=== PATIENT | female | born 1930 | race Caucasian/White ===

== ENCOUNTER 2018-12-04 09:57 | Observation (INO) | payer MEDICARE ==
--- NOTE | 2018-12-04 10:25 | ERPHSYRPT ---
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 pt found down by son. pt has bruising on head, face and back at the level of thoracic spine. pt denies cp and denies abd pain. pt lives alone. pt feels weak. pt has not been eating or drinking well per pts son. pt is a full code. Occurred: days ago (a few days ago and today) Reason for Fall: unknown (found down) Injuries/Pain Location: head, face, back, middle Loss of Consciousness: unsure, other (pt has chronic dementia) Severity of Pain-Max: none Severity of Pain-Current: none Modifying Factors: Improves With: nothing Associated Symptoms (Fall): denies symptoms Allergies/Adverse Reactions: codeine [Codeine] Allergy (Mild, Verified 12/04/18 10:29) Nausea meperidine HCl [From Demerol] Allergy (Mild, Verified 12/04/18 10:29) Vomiting Sulfa (Sulfonamide Antibiotics) [Sulfa(Sulfonamide Antibiotics)] Allergy (Mild, Verified 12/04/18 10:29) Vomiting aspirin Adverse Reaction (Verified 12/04/18 10:29) gi bleeding Can not have any aspirin products Home Medications: Amlodipine Besylate/Benazepril [Lotrel 5-20 mg Capsule] 1 tab PO DAILY 03/06/12 [History] Glimepiride 1 tab PO DAILY 03/06/12 [History] Pravastatin Sodium 1 tab PO HS 03/06/12 [History] Metoprolol Succinate [Toprol Xl] 50 mg PO BID 07/29/14 [History] Apixaban [Eliquis] 2.5 mg PO BID 11/13/14 [History] Hx Tetanus, Diphtheria Vaccination/Date Given: Yes Hx Influenza Vaccination/Date Given: Yes (2012) Hx Pneumococcal Vaccination/Date Given: Yes (2000) - Review of Systems Constitutional: Weakness Eyes: No Symptoms Ears, Nose, & Throat: No Symptoms Respiratory: No Symptoms Cardiac: No Symptoms Abdominal/Gastrointestinal: No Symptoms Genitourinary Symptoms: No Symptoms Musculoskeletal: No Symptoms Skin: No Symptoms Neurological: No Symptoms Psychological: No Symptoms Endocrine: No Symptoms Hematologic/Lymphatic: No Symptoms Immunological/Allergic: No Symptoms All Other Systems: Reviewed and Negative - Past Medical History Pertinent Past Medical History: Yes Neurological History: No Pertinent History ENT History: Cataracts, Other Cardiac History: Arrhythmia, Peripheral Vascular Disease, Other Respiratory History: Bronchitis, COPD Endocrine Medical History: Diabetes Type II Musculoskeletal History: Arthritis GI Medical History: GERD History: No Pertinent History Psycho-Social History: No Pertinent History Female Reproductive Disorders: Other Other Medical History: atrial flutter. Pt and son report that she is having a pacemaker inserted on May 20, 2018. 04/17/18 denies any changes - Past Surgical History Past Surgical History: Yes Neuro Surgical History: No Pertinent History Cardiac: No Pertinent History Respiratory: No Pertinent History, Chest Surgery Gastrointestinal: Cholecystectomy Genitourinary: No Pertinent History Musculoskeletal: No Pertinent History, Orthopedic Surgery Female Surgical History: Hysterectomy Other Surgical History: left ankle surgery 1951,salivary gland exc. right neck , - Social History Smoking Status: Former smoker How long have you smoked: 15years Exposure to second hand smoke: No Drug Use: none - Nursing Vital Signs Nursing Vital Signs: Initial Vital Signs Temperature 97.3 F 12/04/18 10:05 Pulse Rate 80 12/04/18 10:05 Respiratory Rate 17 12/04/18 10:05 Blood Pressure 149/58 12/04/18 10:05 O2 Sat by Pulse Oximetry 98 12/04/18 10:05 Pain Scale Pain Intensity 0 - Carol Coma Score Best Eye Response (Carol): (4) open spontaneously Best Verbal Response (Carol): (4) confused conversation Best Motor Response ([place]): (6) obeys commands Carol Total: 14 - Physical Exam General Appearance: lethargy (mild) Head Injury: ecchymosis (post scalp and right cheek), No Moncada's Sign, No raccoon eyes Eye Exam: PERRL/EOMI, eyes nml inspection ENT Exam: airway nml, other (bruising right cheek) Neck Exam: supple, trachea midline, full range of motion, normal alignment Respiratory/Chest Exam: normal breath sounds, No chest tenderness, No respiratory distress, No ecchymosis, No rhonchi, No wheezing, No accessory muscle use Cardiovascular Exam: normal heart sounds, irregular Gastrointestinal Exam: soft, normal bowel sounds, No tenderness, No guarding, No rebound Rectal Exam: not done Back Exam: normal inspection, normal range of motion, No CVA tenderness, No vertebral tenderness Extremity Exam: normal inspection, normal range of motion Neurologic Exam: alert (oriented to self), cooperative, 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 no comparison) Ordered Tests: Active Orders 24 hr Category Date Time Status Shop Coordinator STAT Care 12/04/18 10:41 Active Clean Catch Urine Specimen STAT Care 12/04/18 10:39 Active EKG-ER Only STAT Care 12/04/18 10:39 Active IV Insertion STAT Care 12/04/18 10:39 Active Pulse Oximetry (ED) STAT Care 12/04/18 10:39 Active FACIAL BONES WO CONTRAST [CT] Stat Exams 12/04/18 10:42 Completed HEAD WITHOUT CONTRAST [CT] Stat Exams 12/04/18 10:40 Completed THORACIC SPINE W/O CONTRAST [CT] Stat Exams 12/04/18 10:42 Completed CBC W DIFF Stat Lab 12/04/18 11:45 Completed CMP Routine Lab 12/04/18 11:45 Completed CULTURE,URINE Stat Lab 12/04/18 14:45 Received TROPONIN Q3H Lab 12/04/18 11:45 Completed UA W/RFX UR CULTURE Stat Lab 12/04/18 14:45 Completed Transfer Order Routine Transfer 12/04/18 Ordered Medication Summary Generic Name Dose Route Start Last Admin Trade Name Domingo PRN Reason Stop Dose Admin Sodium Chloride 1,000 mls @ 100 mls/hr 12/04/18 10:45 12/04/18 11:36 Sodium Chloride 0.9% 1000 Ml IV 01/03/19 10:44 100 mls/hr .Q10H SHARYN Administration Ceftriaxone Sodium/Dextrose 1 g in 50 mls @ 100 mls/hr 12/04/18 15:54 Rocephin 1 Gm-D5w 50 Ml Bag IV 12/04/18 16:23 STAT STA Lab/Rad Data: Laboratory Result Diagrams 12/04/18 11:45 12/04/18 11:45 Laboratory Results 12/04/18 12/04/18 12/04/18 Range/Units 14:45 11:45 11:45 WBC 6.4 (4.0-10.5) K/mm3 RBC 4.50 (4.1-5.4) M/mm3 Hgb 14.0 (12.0-16.0) gm/dl Hct 44.2 (35-47) % MCV 98.2 (78-100) fl MCH 31.1 (26-32) pg MCHC 31.7 L (32-36) g/dl RDW 14.8 H (11.5-14.0) % Plt Count 228 (150-450) K/mm3 MPV 11.0 H (6-9.5) fl Gran % 70.3 H (36.0-66.0) % Eos # (Auto) 0.10 (0-0.5) Absolute Lymphs (auto) 1.27 (1.0-4.6) Absolute Monos (auto) 0.51 (0.0-1.3) Lymphocytes % 19.8 L (24.0-44.0) % Monocytes % 8.0 (0.0-12.0) % Eosinophils % 1.6 (0.00-5.0) % Basophils % 0.3 (0.0-0.4) % Absolute Granulocytes 4.51 (1.4-6.9) Basophils # 0.02 (0-0.4) Sodium 141 (137-145) mmol/L Potassium 4.0 (3.5-5.1) mmol/L Chloride 107 (98-107) mmol/L Carbon Dioxide 24 (22-30) mmol/L Anion Gap 13.6 (5-15) MEQ/L BUN 10 (7-17) mg/dL Creatinine 0.80 (0.52-1.04) mg/dL Estimated GFR > 60.0 ML/MIN Glucose 75 (74-106) mg/dL Calcium 9.7 (8.4-10.2) mg/dL Total Bilirubin 0.60 (0.2-1.3) mg/dL AST 35 (14-36) U/L ALT 17 (0-35) U/L Alkaline Phosphatase 75 (38-126) U/L Troponin I < 0.012 (0.000-0.034) ng/mL Serum Total Protein 6.5 (6.3-8.2) g/dL Albumin 3.2 L (3.5-5.0) g/dL Urine Color YELLOW (YELLOW) Urine Appearance CLOUDY (CLEAR) Urine pH 6.0 (5-6) Ur Specific [place] 1.011 (1.005-1.025) Urine Protein NEGATIVE (Negative) Urine Ketones TRACE (NEGATIVE) Urine Blood MODERATE (0-5) Raimundo/ul Urine Nitrite NEGATIVE (NEGATIVE) Urine Bilirubin NEGATIVE (NEGATIVE) Urine Urobilinogen NEGATIVE (0-1) mg/dL Ur Leukocyte Esterase TRACE (NEGATIVE) Urine WBC (Auto) 6-10 (0-5) /HPF Urine RBC (Auto) 3-5 (0-2) /HPF U Hyaline Cast (Auto) 3-5 (0-2) /LPF U Epithel Cells (Auto) RARE (FEW) /HPF Urine Bacteria (Auto) MODERATE (NEGATIVE) /HPF Urine Mucus (Auto) SLIGHT (NEGATIVE) /HPF Urine Culture Reflexed YES (NO) Urine Glucose NEGATIVE (NEGATIVE) mg/dL - Progress Progress: improved, re-examined Progress Note: 12/04/18 14:[address] mcfarland. he accepts pt for observation. awaiting urinalysis prior to putting in observation orders. 12/04/18 14:47 ct head, face and thoracic spine reveal no acute processes. Discussed with : Kati Counseled pt/family regarding: lab results, diagnosis, rad results - Departure Departure Disposition: Observation Clinical Impression: UTI (urinary tract infection), Failure to thrive in adult, Frequent falls, Weakness Condition: Stable Critical Care Time: No Referrals: LAILA MCFARLAND MD [Primary Care Provider] -
[2018-12-04] MEDS ORDERED: Sodium Chloride 0.9% 1000 ML 1,000 ML IV SCH (10:45)
[2018-12-04] MEDS ORDERED: Sodium Chloride 0.9% 1000 ML 1,000 ML ONE (11:30)
--- NOTE | 2018-12-04 11:33 | XRAY ---
Indication: Status post fall. Multiple contiguous axial images obtained through the head without contrast. Comparison: None Age-appropriate global atrophy, mild periventricular degenerative micro-ischemia bilaterally, and remote bilateral basal ganglia lacunar infarcts. No acute intracranial hemorrhage, abnormal extra-axial fluid collection, or mass effect. Fourth ventricle is midline without hydrocephalus. Bony calvarium intact. Visualized paranasal sinuses and mastoid air cells are clear. Impression: Nonacute senile brain with old bilateral basal ganglia lacunar infarcts. CT DI 94.40
--- NOTE | 2018-12-04 11:38 | XRAY ---
Indication: Status post fall. Multiple contiguous axial images obtained through the facial bones. Sagittal and coronal reformatted images obtained. Comparison: None Patient is edentulous with age-related osteopenia. No acute fracture, suspicious bony lesions, or radiopaque foreign body. Orbits including roof, shi, and floors intact. Moderate left TMJ degenerative changes. Paranasal sinuses and nasal passages are pneumatized and clear. Bilateral carotid calcifications and 12 mm right face skin tag. Remaining visualized noncontrasted soft tissues unremarkable. CT head reported separately. Impression: 1. Negative acute fracture. 2. Incidental osteopenia, left TMJ degenerative changes, bilateral carotid calcifications, and right face skin tag. CT DI 59.47
--- NOTE | 2018-12-04 11:42 | XRAY ---
Indication: Status post fall. Multiple contiguous axial images obtained through the thoracic spine. Sagittal and coronal reformatted images obtained. Comparison: None Age-related osteopenia. Axial images negative for acute fracture, suspicious bony lesions, or spinal canal stenosis. Mild/moderate multilevel bridging/nonbridging endplate osteophytes. Sagittal and coronal reformatted images demonstrates normal thoracic alignment. No acute compression fracture or subluxation. Visualized noncontrasted soft tissues demonstrates bilateral posterior lung atelectasis/scarring, moderate scattered aortic calcifications, and calcified splenic granulomas. Impression: 1. Negative acute fracture/subluxation. 2. Incidental osteopenia, degenerative spurring, aortoiliac calcifications, and evidence for old granulomatous disease. CT DI 114.64
[2018-12-04 12:01] LABS: BASOPHIL % 0.3 % (0.0-0.4); Basophil (Absolute #) 0.02 (0-0.4); Eosinophil % 1.6 % (0.00-5.0); Granulocyte Absolute (ANC) 4.51 (1.4-6.9); Granulocytes % 70.3 % (36.0-66.0); Hematocrit 44.2 % (35-47); Lymphocyte (Absolute #) 1.27 (1.0-4.6); Lymphocytes % 19.8 % (24.0-44.0); Mean Cell Volume 98.2 fl (78-100); Mean Corpuscular Hemoglobin 31.1 pg (26-32); Mean Corpuscular Hgb Concent. 31.7 g/dl (32-36); Monocyte (Absolute #) 0.51 (0.0-1.3); Platelet Count 228 K/mm3 (150-450); Red Cell Distribution Width 14.8 % (11.5-14.0); White Blood Count 6.4 K/mm3 (4.0-10.5)
[2018-12-04 12:20] LABS: ALBUMIN 3.2 g/dL (3.5-5.0); ALKALINE PHOSPHATASE 75 U/L (38-126); ANION GAP 13.6 MEQ/L (5-15); BLOOD UREA NITROGEN 10 mg/dL (7-17); CHLORIDE 107 mmol/L (98-107); Calcium 9.7 mg/dL (8.4-10.2); Carbon Dioxide 24 mmol/L (22-30); Glucose 75 mg/dL (74-106); SGOT/AST 35 U/L (14-36); SGPT/ALT 17 U/L (0-35); SODIUM 141 mmol/L (137-145); Total Protein 6.5 g/dL (6.3-8.2)
[2018-12-04 12:22] LABS: TROPONIN < 0.012 ng/mL (0.000-0.034)
[2018-12-04 15:02] LABS: Appearance CLOUDY (CLEAR); Bacteria MODERATE /HPF (NEGATIVE); Bilirubin NEGATIVE (NEGATIVE); Blood MODERATE Ery/ul (0-5); Epithelial Cells RARE /HPF (FEW); Glucose NEGATIVE (NEGATIVE); Ketones TRACE (NEGATIVE); Leukocyte Esterase TRACE (NEGATIVE); Mucus SLIGHT /HPF (NEGATIVE); Nitrite NEGATIVE (NEGATIVE); Protein,Urine Dip NEGATIVE (Negative); Specific Gravity 1.011 (1.005-1.025); Urobilinogen NEGATIVE mg/dL (0-1)
[2018-12-04] MEDS ORDERED: ROCEPHIN 1 Gm-D5w 50 ml Bag** 1 G/50 ML IVPB IV STA (15:54)
[2018-12-04] MEDS ORDERED: ROCEPHIN 1 Gm-D5w 50 ml Bag** 1 G/50 ML IVPB IV ONE (15:58)
[2018-12-04] MEDS ORDERED: TYLENOL 325 MG PO PRN (17:06)
[2018-12-04] MEDS ORDERED: Zofran 4 MG/2 ML VIAL IV PRN (17:06)
[2018-12-04] MEDS ORDERED: Tums EX 750 MG PO PRN (19:15)
[2018-12-04] MEDS ORDERED: Zocor 10MG PO SCH (22:00)
[2018-12-04] MEDS: ELIQUIS 2.5 MG TABLET PO SCH (22:47)
[2018-12-04] MEDS: Toprol Xl 50 MG PO SCH (22:47)
[2018-12-05] MEDS: Sodium Chloride 0.9% 1000 ML 1,000 ML IV SCH (02:17)
[2018-12-05 05:53] LABS: Hematocrit 38.3 % (35-47); Hemoglobin 12.1 gm/dl (12.0-16.0); Mean Cell Volume 97.7 fl (78-100); Mean Corpuscular Hgb Concent. 31.6 g/dl (32-36); Platelet Count 236 K/mm3 (150-450); Red Blood Count 3.92 M/mm3 (4.1-5.4); Red Cell Distribution Width 14.6 % (11.5-14.0)
[2018-12-05 05:56] LABS: Mean Corpuscular Hemoglobin 30.8 pg (26-32)
[2018-12-05 06:02] LABS: ANION GAP 9.7 MEQ/L (5-15); BLOOD UREA NITROGEN 8 mg/dL (7-17); CHLORIDE 109 mmol/L (98-107); Calcium 8.8 mg/dL (8.4-10.2); Carbon Dioxide 24 mmol/L (22-30); Creatinine 1 0.65 mg/dL (0.52-1.04); Glucose 91 mg/dL (74-106); Potassium 3.4 mmol/L (3.5-5.1); SODIUM 139 mmol/L (137-145)
[2018-12-05] MEDS: Amaryl 2 MG PO SCH (08:10)
--- NOTE | 2018-12-05 09:05 | PCM.HP ---
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 pt has bruising on head, face and back at the level of thoracic spine. pt denies cp and denies abd pain. pt lives alone. pt feels weak. pt has not been eating or drinking well per pts son. - Review of Systems Constitutional: No Fever, No Chills Eyes: No Symptoms Ears, Nose, & Throat: No Symptoms Respiratory: No Cough, No Short Of Breath Cardiac: No Chest Pain, No Edema, No Syncope Abdominal/Gastrointestinal: No Abdominal Pain, No Nausea, No Vomiting, No Diarrhea Genitourinary Symptoms: No Dysuria Musculoskeletal: No Back Pain, No Neck Pain Skin: No Rash Neurological: No Dizziness, No Focal Weakness, No Sensory Changes Psychological: No Symptoms Endocrine: No Symptoms Hematologic/Lymphatic: No Symptoms Immunological/Allergic: No Symptoms Medications & Allergies Home Medications: Home Medication List Amlodipine Besylate/Benazepril [Lotrel 5-20 mg Capsule] 1 tab PO DAILY 03/06/12 [History Confirmed 12/04/18] Glimepiride 1 tab PO DAILY 03/06/12 [History Confirmed 12/04/18] Pravastatin Sodium 1 tab PO HS 03/06/12 [History Confirmed 12/04/18] Metoprolol Succinate [Toprol Xl] 50 mg PO BID 07/29/14 [History Confirmed ] Apixaban [Eliquis] 2.5 mg PO BID 11/13/14 [History Confirmed 12/04/18] Calcium Carbonate [Tums] 1 tab PO QID PRN 12/04/18 [History Confirmed 12/04/18] Allergies/Adverse Reactions: Allergies Allergy/AdvReac Type Severity Reaction Status Date / Time codeine [Codeine] Allergy Mild Nausea Verified 12/04/18 17:16 meperidine HCl [From Demerol] Allergy Mild Vomiting Verified 12/04/18 17:16 Sulfa (Sulfonamide Allergy Mild Vomiting Verified 12/04/18 17:16 Antibiotics) [Sulfa(Sulfonamide Antibiotics)] aspirin AdvReac gi bleeding Verified 12/04/18 17:16 - Past Medical History Past Medical History: Yes Neurological History: Dementia ENT History: Cataracts Cardiac History: Arrhythmia, Peripheral Vascular Disease, Other Respiratory History: CHF Endocrine Medical History: Diabetes Type II Musculoskelatal History: Arthritis GI Medical History: GERD History: No Pertinent History Pyscho-Social History: No Pertinent History Reproductive Disorders: No Pertinent History Comment: atrial fib - Female History Are you now?: No - Past Surgical History Past Surgical History: Yes Neuro Surgical History: No Pertinent History Cardiac History: No Pertinent History Respiratory Surgery: No Pertinent History GI Surgical History: Cholecystectomy Genitourinary Surgical Hx: No Pertinent History Musculskeletal Surgical Hx: Orthopedic Surgery Female Surgical History: Hysterectomy Other Surgical History: left ankle surgery 1951,salivary gland exc. right neck , - Social History Smoking Status: Former smoker How long have you smoked: 15years Exposure to second hand smoke: No Alcohol: None Drug Use: none - Physical Exam Vital Signs: Vital Signs - 24 hr Temp Pulse Resp BP BP Pulse Ox 12/05/18 08:00 97.7 F 79 17 167/74 98 12/05/18 03:36 98.3 F 72 16 131/69 97 12/04/18 23:37 97.9 F 69 18 145/61 96 12/04/18 20:00 97.8 F 85 17 137/63 98 12/04/18 17:30 97.9 F 87 16 165/75 12/04/18 16:20 77 16 137/66 98 12/04/18 13:26 86 18 146/66 97 12/04/18 12:19 85 16 144/79 100 12/04/18 11:40 88 18 154/88 100 12/04/18 11:11 98 12/04/18 10:05 97.3 F 80 17 149/58 98 General Appearance: no apparent distress, alert Neurologic Exam: alert, oriented x 3, cooperative, normal mood/affect, nml cerebellar function, nml station & gait, sensation nml, No motor deficits Eye Exam: PERRL/EOMI, eyes nml inspection Ears, Nose, Throat Exam: normal ENT inspection, TMs normal, pharynx normal, moist mucous membranes Neck Exam: normal inspection, non-tender, supple, full range of motion Respiratory Exam: normal breath sounds, lungs clear, No respiratory distress Cardiovascular Exam: regular rate/rhythm, normal heart sounds, normal peripheral pulses Gastrointestinal/Abdomen Exam: soft, normal bowel sounds, No tenderness, No mass Back Exam: normal inspection, normal range of motion, No CVA tenderness, No vertebral tenderness Extremity Exam: normal inspection, normal range of motion, pelvis stable Skin Exam: normal color, warm, dry, No rash Lymphatic Exam: No adenopathy Results - Labs Lab/Micro Results: Lab Results-Last 24 Hours 12/04/18 12/04/18 12/04/18 Range/Units 11:45 11:45 14:45 WBC 6.4 (4.0-10.5) K/mm3 RBC 4.50 (4.1-5.4) M/mm3 Hgb 14.0 (12.0-16.0) gm/dl Hct 44.2 (35-47) % MCV 98.2 (78-100) fl MCH 31.1 (26-32) pg MCHC 31.7 L (32-36) g/dl RDW 14.8 H (11.5-14.0) % Plt Count 228 (150-450) K/mm3 MPV 11.0 H (6-9.5) fl Gran % 70.3 H (36.0-66.0) % Eos # (Auto) 0.10 (0-0.5) Absolute Lymphs (auto) 1.27 (1.0-4.6) Absolute Monos (auto) 0.51 (0.0-1.3) Lymphocytes % 19.8 L (24.0-44.0) % Monocytes % 8.0 (0.0-12.0) % Eosinophils % 1.6 (0.00-5.0) % Basophils % 0.3 (0.0-0.4) % Absolute Granulocytes 4.51 (1.4-6.9) Basophils # 0.02 (0-0.4) Sodium 141 (137-145) mmol/L Potassium 4.0 (3.5-5.1) mmol/L Chloride 107 (98-107) mmol/L Carbon Dioxide 24 (22-30) mmol/L Anion Gap 13.6 (5-15) MEQ/L BUN 10 (7-17) mg/dL Creatinine 0.80 (0.52-1.04) mg/dL Estimated GFR > 60.0 ML/MIN Glucose 75 (74-106) mg/dL Calcium 9.7 (8.4-10.2) mg/dL Total Bilirubin 0.60 (0.2-1.3) mg/dL AST 35 (14-36) U/L ALT 17 (0-35) U/L Alkaline Phosphatase 75 (38-126) U/L Troponin I < 0.012 (0.000-0.034) ng/mL Serum Total Protein 6.5 (6.3-8.2) g/dL Albumin 3.2 L (3.5-5.0) g/dL Prealbumin (17.6-36.0) mg/dL Urine Color YELLOW (YELLOW) Urine Appearance CLOUDY (CLEAR) Urine pH 6.0 (5-6) Ur Specific [place] 1.011 (1.005-1.025) Urine Protein NEGATIVE (Negative) Urine Ketones TRACE (NEGATIVE) Urine Blood MODERATE (0-5) Raimundo/ul Urine Nitrite NEGATIVE (NEGATIVE) Urine Bilirubin NEGATIVE (NEGATIVE) Urine Urobilinogen NEGATIVE (0-1) mg/dL Ur Leukocyte Esterase TRACE (NEGATIVE) Urine WBC (Auto) 6-10 (0-5) /HPF Urine RBC (Auto) 3-5 (0-2) /HPF U Hyaline Cast (Auto) 3-5 (0-2) /LPF U Epithel Cells (Auto) RARE (FEW) /HPF Urine Bacteria (Auto) MODERATE (NEGATIVE) /HPF Urine Mucus (Auto) SLIGHT (NEGATIVE) /HPF Urine Culture Reflexed YES (NO) Urine Glucose NEGATIVE (NEGATIVE) mg/dL 12/05/18 12/05/18 12/05/18 Range/Units 05:25 05:25 05:25 WBC 5.0 (4.0-10.5) K/mm3 RBC 3.92 L (4.1-5.4) M/mm3 Hgb 12.1 (12.0-16.0) gm/dl Hct 38.3 (35-47) % MCV 97.7 (78-100) fl MCH 30.8 (26-32) pg MCHC 31.6 L (32-36) g/dl RDW 14.6 H (11.5-14.0) % Plt Count 236 (150-450) K/mm3 MPV 11.0 H (6-9.5) fl Gran % (36.0-66.0) % Eos # (Auto) (0-0.5) Absolute Lymphs (auto) (1.0-4.6) Absolute Monos (auto) (0.0-1.3) Lymphocytes % (24.0-44.0) % Monocytes % (0.0-12.0) % Eosinophils % (0.00-5.0) % Basophils % (0.0-0.4) % Absolute Granulocytes (1.4-6.9) Basophils # (0-0.4) Sodium 139 (137-145) mmol/L Potassium 3.4 L (3.5-5.1) mmol/L Chloride 109 H (98-107) mmol/L Carbon Dioxide 24 (22-30) mmol/L Anion Gap 9.7 (5-15) MEQ/L BUN 8 (7-17) mg/dL Creatinine 0.65 (0.52-1.04) mg/dL Estimated GFR > 60.0 ML/MIN Glucose 91 (74-106) mg/dL Calcium 8.8 (8.4-10.2) mg/dL Total Bilirubin (0.2-1.3) mg/dL AST (14-36) U/L ALT (0-35) U/L Alkaline Phosphatase (38-126) U/L Troponin I (0.000-0.034) ng/mL Serum Total Protein (6.3-8.2) g/dL Albumin (3.5-5.0) g/dL Prealbumin 9.87 L (17.6-36.0) mg/dL Urine Color (YELLOW) Urine Appearance (CLEAR) Urine pH (5-6) Ur Specific [place] (1.005-1.025) Urine Protein (Negative) Urine Ketones (NEGATIVE) Urine Blood (0-5) Raimundo/ul Urine Nitrite (NEGATIVE) Urine Bilirubin (NEGATIVE) Urine Urobilinogen (0-1) mg/dL Ur Leukocyte Esterase (NEGATIVE) Urine WBC (Auto) (0-5) /HPF Urine RBC (Auto) (0-2) /HPF U Hyaline Cast (Auto) (0-2) /LPF U Epithel Cells (Auto) (FEW) /HPF Urine Bacteria (Auto) (NEGATIVE) /HPF Urine Mucus (Auto) (NEGATIVE) /HPF Urine Culture Reflexed (NO) Urine Glucose (NEGATIVE) mg/dL - Radiology Impressions Radiology Exams & Impressions: Radiology Procedures Category Date Time Status FACIAL BONES WO CONTRAST [CT] Stat Exams 12/04/18 10:42 Completed HEAD WITHOUT CONTRAST [CT] Stat Exams 12/04/18 10:40 Completed THORACIC SPINE W/O CONTRAST [CT] Stat Exams 12/04/18 10:42 Completed Assessment/Plan (1) UTI (urinary tract infection) Current Visit: Yes Status: Acute Qualifiers: Urinary tract infection type: acute pyelonephritis Qualified Code(s): N10 - Acute pyelonephritis Assessment & Plan: Abnormal Lab Results 12/04/18 12/04/18 12/05/18 Range/Units 11:45 11:45 05:25 RBC 3.92 L (4.1-5.4) M/mm3 MCHC 31.7 L 31.6 L (32-36) g/dl RDW 14.8 H 14.6 H (11.5-14.0) % MPV 11.0 H 11.0 H (6-9.5) fl Gran % 70.3 H (36.0-66.0) % Lymphocytes % 19.8 L (24.0-44.0) % Potassium (3.5-5.1) mmol/L Chloride (98-107) mmol/L Albumin 3.2 L (3.5-5.0) g/dL Prealbumin (17.6-36.0) mg/dL 12/05/18 12/05/18 Range/Units 05:25 05:25 RBC (4.1-5.4) M/mm3 MCHC (32-36) g/dl RDW (11.5-14.0) % MPV (6-9.5) fl Gran % (36.0-66.0) % Lymphocytes % (24.0-44.0) % Potassium 3.4 L (3.5-5.1) mmol/L Chloride 109 H (98-107) mmol/L Albumin (3.5-5.0) g/dL Prealbumin 9.87 L (17.6-36.0) mg/dL Code(s): N39.0 - URINARY TRACT INFECTION, SITE NOT SPECIFIED (2) Frequent falls Current Visit: Yes Status: Acute Code(s): R29.6 - REPEATED FALLS (3) Weakness Current Visit: Yes Status: Acute Code(s): R53.1 - WEAKNESS
[2018-12-05] MEDS: NORVASC 5 MG PO SCH (09:17)
[2018-12-05] MEDS: ELIQUIS 2.5 MG TABLET PO SCH ×2 (09:17→22:29)
[2018-12-05] MEDS: Lotensin 10 MG PO SCH (09:17)
[2018-12-05] MEDS: Toprol Xl 50 MG PO SCH ×2 (09:17→22:29)
[2018-12-05] MEDS: ROCEPHIN 1 Gm-D5w 50 ml Bag** 1 G/50 ML IVPB IV SCH (09:18)
[2018-12-05] MEDS ORDERED: AMLODIPINE BESYLATE PO SCH (10:00)
[2018-12-05] MEDS ORDERED: GLIMEPIRIDE PO SCH (10:00)
[2018-12-05] MEDS ORDERED: BENAZEPRIL PO SCH (10:00)
[2018-12-05] MEDS: ZOCOR 20MG PO SCH (22:29)
[2018-12-06] MEDS: Sodium Chloride 0.9% 1000 ML 1,000 ML IV SCH ×2 (00:07→22:01)
[2018-12-06] MEDS: Amaryl 2 MG PO SCH (08:04)
[2018-12-06] MEDS: ELIQUIS 2.5 MG TABLET PO SCH ×2 (11:32→22:06)
[2018-12-06] MEDS: Lotensin 10 MG PO SCH (11:32)
[2018-12-06] MEDS: ROCEPHIN 1 Gm-D5w 50 ml Bag** 1 G/50 ML IVPB IV SCH (11:33)
[2018-12-06] MEDS: NORVASC 5 MG PO SCH (11:33)
[2018-12-06] MEDS: Toprol Xl 50 MG PO SCH ×2 (11:33→22:06)
--- NOTE | 2018-12-06 12:50 | PCM.NOTE ---
Date and Time: 12/06/18 1249 Subjective Assessment: doing ok - Review of Systems Constitutional: No Fever, No Chills Eyes: No Symptoms Ears, Nose, & Throat: No Symptoms Respiratory: No Cough, No Short Of Breath Cardiac: No Chest Pain, No Edema, No Syncope Abdominal/Gastrointestinal: No Abdominal Pain, No Nausea, No Vomiting, No Diarrhea Genitourinary Symptoms: No Dysuria Musculoskeletal: No Back Pain, No Neck Pain Skin: No Rash Neurological: No Dizziness, No Focal Weakness, No Sensory Changes Psychological: No Symptoms Endocrine: No Symptoms Hematologic/Lymphatic: No Symptoms Immunological/Allergic: No Symptoms Objective Exam General Appearance: no apparent distress, alert Neurologic Exam: alert, oriented x 3, cooperative, normal mood/affect, nml cerebellar function, sensation nml, No motor deficits Skin Exam: normal color, warm, dry Eye Exam: PERRL, EOMI, eyes nml inspection Ears, Nose, Throat Exam: normal ENT inspection, pharynx normal, moist mucous membranes Neck Exam: normal inspection, non-tender, supple, full range of motion Respiratory Exam: normal breath sounds, lungs clear, No respiratory distress Cardiovascular Exam: regular rate/rhythm, normal heart sounds Gastrointestinal/Abdomen Exam: soft, No tenderness, No mass Extremity Exam: normal inspection, normal range of motion Back Exam: normal inspection, normal range of motion, No CVA tenderness, No vertebral tenderness Pelvic Exam: deferred Rectal Exam: deferred OBJECTIVE DATA Vital Signs: Vital Signs - 24 hr Temp Pulse Resp BP Pulse Ox 12/06/18 08:00 98.3 F 75 18 182/76 98 12/06/18 03:49 98.1 F 71 18 150/71 94 L 12/05/18 23:45 97.7 F 69 16 174/75 98 12/05/18 19:44 97.3 F 74 17 155/69 98 12/05/18 16:18 97.8 F 80 20 142/78 96 Pain Assessment - Last Documented Pain Intensity 0 Pain Scale Used 0-10 Pain Scale Intake and Output: Intake & Output 12/04/18 12/05/18 12/06/18 12/07/18 11:59 11:59 11:59 11:59 Intake Total 1074 9587 Output Total 2500 Balance 1074 227 Weight 72.575 kg 73.6 kg Multi-Disciplinary Progress Notes: Multi-Disciplinary Progress Notes 12/06/18 12:42 Case Management Note by Loni Flowers REFERRAL CALLED AND FAXED TO [facility], NO LEVEL II REQUIRED, ALSO, FAXED TO [facility]. Initialized on 12/06/18 12:42 - END OF NOTE 12/06/18 11:45 (created 12/06/18 12:27) Case Management Note by Loni Flowers DISCHARGE PLAN REVIEWED WITH PT'S SON, NOW REPORTS THAT HE FEELS THAT A REHAB STAY AT [facility] WOULD BE BENEFICIAL TO PT, PT IS STILL WEAK, GROGGY, AND UNSTABLE ON HER FEET. PT REPORTS THAT SHE DOES NOT WANT TO GO, BUT SHE WILL. REQUESTS REFERRAL TO [facility] CHOICE. CALL TO [facility], VOICEMAIL MESSAGE LEFT FOR [facility] MANAGER MEETING, FAXED REFERRAL AT THIS GRETCHEN.E. DID DISCUSS WITH SON, THAT THEY WILL HAVE TO GET PRECERT WITH PT'S INSURANCE PRIOR TO HER DISCHARGE. SON VERBALIZED UNDERSTANDING. PT AND SON ARE BOTH AGREEABLE TO THIS PLAN. Initialized on 12/06/18 12:27 - END OF NOTE 12/05/18 13:00 (created 12/05/18 14:32) Case Management Note by Loni Flowers SPOKE WITH SON, PT'S LAY CAREGIVER, IN LENGTH REGARDING NEEDS ON DISCHARGE. 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 REPORTS THAT HE THREATENED TO CALL AMBULANCE TO GET HER TO COME TO HOSPITAL. REPORTS THAT HE FEELS THAT SHE IS WEAKENED FROM FALLS, ALSO, REPORTS THAT SHE HAS NOT BEEN EATING WELL. REPORTS THAT HE WILL DISCUSS C SERVICES WITH PT, BUT DOES NOT FEEL THAT SHE ALLOW. REPORTS THAT HE HAS A FRIEND THAT IS PLANNING TO HELP HIM SIT WITH HER ON DISCHARGE. HE IS NEXT DOOR AND CHECKS ON HER THROUGHOUT THE DAY. DENIES ADDNL NEEDS AT THIS TIME. REPORTS THAT THEIR PLAN TO RETURN HOME. WILL CONTINUE TO FOLLOW AND ASSESS FOR ALL DC NEEDS. Initialized on 12/05/18 14:32 - END OF NOTE Assessment/Plan (1) UTI (urinary tract infection) Current Visit: Yes Status: Acute Qualifiers: Urinary tract infection type: acute pyelonephritis Qualified Code(s): N10 - Acute pyelonephritis Code(s): N39.0 - URINARY TRACT INFECTION, SITE NOT SPECIFIED (2) Frequent falls Current Visit: Yes Status: Acute Code(s): R29.6 - REPEATED FALLS (3) Weakness Current Visit: Yes Status: Acute Code(s): R53.1 - WEAKNESS (4) Atrial fibrillation Current Visit: Yes Status: Chronic Qualifiers: Atrial fibrillation type: chronic Qualified Code(s): I48.2 - Chronic atrial fibrillation Code(s): I48.91 - UNSPECIFIED ATRIAL FIBRILLATION
--- NOTE | 2018-12-06 13:23 | XRAY ---
Indication: Left lower rib pain. Comparison: July 29, 2014. Portable chest now demonstrates left lung base obscured by cardiac silhouette. Remaining lungs clear again with left perihilar and left lung calcified granulomas. Stable right costophrenic angle fibrosis/scarring. Remaining lungs clear. Heart is not enlarged again with right Port-A-Cath. Aorta remains calcified. Bony thorax intact again with mild osteopenia and degenerative changes. Impression: Nonacute chest with chronic features.
[2018-12-06] MEDS: ZOCOR 20MG PO SCH (22:06)
[2018-12-07] MEDS: Amaryl 2 MG PO SCH (08:09)
[2018-12-07] MEDS: ELIQUIS 2.5 MG TABLET PO SCH ×2 (10:03→21:34)
[2018-12-07] MEDS: Lotensin 10 MG PO SCH (10:03)
[2018-12-07] MEDS: Toprol Xl 50 MG PO SCH ×2 (10:04→21:34)
[2018-12-07] MEDS: ROCEPHIN 1 Gm-D5w 50 ml Bag** 1 G/50 ML IVPB IV SCH (10:04)
[2018-12-07] MEDS: NORVASC 5 MG PO SCH (10:04)
[2018-12-07 12:45] LABS: BASOPHIL % 0.3 % (0.0-0.4); Basophil (Absolute #) 0.02 (0-0.4); Eosinophil % 1.2 % (0.00-5.0); Eosinophil (Absolute #) 0.08 (0-0.5); Granulocyte Absolute (ANC) 4.88 (1.4-6.9); Granulocytes % 71.7 % (36.0-66.0); Hematocrit 41.8 % (35-47); Hemoglobin 13.1 gm/dl (12.0-16.0); Lymphocyte (Absolute #) 1.35 (1.0-4.6); Lymphocytes % 19.9 % (24.0-44.0); Mean Cell Volume 97.4 fl (78-100); Mean Corpuscular Hemoglobin 30.5 pg (26-32); Mean Corpuscular Hgb Concent. 31.3 g/dl (32-36); Mean Platelet Volume 11.2 fl (6-9.5); Monocyte (Absolute #) 0.47 (0.0-1.3); Monocytes % 6.9 % (0.0-12.0); Platelet Count 249 K/mm3 (150-450); Red Blood Count 4.29 M/mm3 (4.1-5.4); Red Cell Distribution Width 14.8 % (11.5-14.0); White Blood Count 6.8 K/mm3 (4.0-10.5)
[2018-12-07 13:22] LABS: ANION GAP 10.3 MEQ/L (5-15); BLOOD UREA NITROGEN 7 mg/dL (7-17); CHLORIDE 108 mmol/L (98-107); Calcium 8.9 mg/dL (8.4-10.2); Carbon Dioxide 27 mmol/L (22-30); Creatinine 1 0.66 mg/dL (0.52-1.04); Glucose 97 mg/dL (74-106); Potassium 3.3 mmol/L (3.5-5.1); SODIUM 142 mmol/L (137-145)
[2018-12-07] MEDS ORDERED: NovoLOG Insulin SQ PRN (14:29)
--- NOTE | 2018-12-07 14:36 | PCM.NOTE ---
Date and Time: 12/07/18 1431 Subjective Assessment: Her son and daughter are at the bedside. Her son is concerned that her hgb A1C may be low. Her daughter was unaware that she is on a diabetes medication. The patient reports it feels hard to open her eyes but denies having sensitivity to light. They agree that their plan is to try to go to [facility] for rehab. - Review of Systems Constitutional: Fatigue Eyes: Other (hard to open eyes; eyes feel matted shut) Ears, Nose, & Throat: No Symptoms Respiratory: No Symptoms Cardiac: No Symptoms Abdominal/Gastrointestinal: No Symptoms Genitourinary Symptoms: No Symptoms Musculoskeletal: No Symptoms Skin: No Symptoms Objective Exam General Appearance: no apparent distress, alert, other (sitting in chair, eyes closed, but she opens them when asked, but has to pull her eye lid up on right at first.) Neurologic Exam: alert, cooperative, normal mood/affect, nml cerebellar function , other (strength 5/5 in all 4 ext) Skin Exam: normal color, warm, dry, rash, other (multiple excoriated areas on back.) Respiratory Exam: normal breath sounds, lungs clear, No crackles/rales, No rhonchi, No wheezing Cardiovascular Exam: regular rate/rhythm, normal heart sounds, No murmur, No friction rub, No gallop Gastrointestinal/Abdomen Exam: soft, normal bowel sounds, No tenderness, No distention, No mass Extremity Exam: other (no c/c/e) OBJECTIVE DATA Vital Signs: Vital Signs - 24 hr Temp Pulse Resp BP Pulse Ox 12/07/18 13:07 97.8 F 78 18 142/80 96 12/07/18 07:01 97.7 F 70 18 138/88 97 12/07/18 04:03 97.6 F 69 18 156/66 98 12/07/18 03:43 97.6 F 69 18 156/66 98 12/07/18 03:40 97.4 F 67 17 153/65 98 12/06/18 23:52 97.4 F 67 17 153/65 98 12/06/18 20:00 95.7 F 54 L 18 161/60 97 12/06/18 16:00 98.3 F 68 16 149/64 98 Pain Assessment - Last Documented Pain Intensity 0 Pain Scale Used 0-10 Pain Scale Intake and Output: Intake & Output 12/05/18 12/06/18 12/07/18 12/08/18 06:59 06:59 06:59 06:59 Intake Total 836 0613 2049 720 Output Total 1906 1150 900 Balance 830 450 139 -180 Weight 73.6 kg 73.7 kg 74.1 kg Lab Results: Lab Results-Last 24 Hours 12/07/18 12/07/18 12/07/18 Range/Units 12:20 12:20 12:20 WBC 6.8 (4.0-10.5) K/mm3 RBC 4.29 (4.1-5.4) M/mm3 Hgb 13.1 (12.0-16.0) gm/dl Hct 41.8 (35-47) % MCV 97.4 (78-100) fl MCH 30.5 (26-32) pg MCHC 31.3 L (32-36) g/dl RDW 14.8 H (11.5-14.0) % Plt Count 249 (150-450) K/mm3 MPV 11.2 H (6-9.5) fl Gran % 71.7 H (36.0-66.0) % Eos # (Auto) 0.08 (0-0.5) Absolute Lymphs (auto) 1.35 (1.0-4.6) Absolute Monos (auto) 0.47 (0.0-1.3) Lymphocytes % 19.9 L (24.0-44.0) % Monocytes % 6.9 (0.0-12.0) % Eosinophils % 1.2 (0.00-5.0) % Basophils % 0.3 (0.0-0.4) % Absolute Granulocytes 4.88 (1.4-6.9) Basophils # 0.02 (0-0.4) Sodium 142 (137-145) mmol/L Potassium 3.3 L (3.5-5.1) mmol/L Chloride 108 H (98-107) mmol/L Carbon Dioxide 27 (22-30) mmol/L Anion Gap 10.3 (5-15) MEQ/L BUN 7 (7-17) mg/dL Creatinine 0.66 (0.52-1.04) mg/dL Estimated GFR > 60.0 ML/MIN Glucose 97 (74-106) mg/dL Hemoglobin A1c 4.81 (4.5-6.0) % Calcium 8.9 (8.4-10.2) mg/dL Magnesium 2.0 (1.6-2.3) mg/dL TSH 3rd Generation 4.420 (0.47-4.68) mIU/L Radiology Exams: Radiology Procedures Category Date Time Status CHEST 1 VIEW (PORTABLE) Urgent Exams 12/06/18 13:00 Completed Multi-Disciplinary Progress Notes: Multi-Disciplinary Progress Notes 12/06/18 15:56 Case Management Note by Loni Flowers, EVENT DECORATOR @ [facility] CALLED TO REPORT THAT PRECERT HAS BEEN INITIATED. Initialized on 12/06/18 15:56 - END OF NOTE Assessment/Plan (1) UTI (urinary tract infection) Current Visit: Yes Status: Acute Qualifiers: Urinary tract infection type: acute pyelonephritis Qualified Code(s): N10 - Acute pyelonephritis Assessment & Plan: Urine culture grew mixed adrianna. Continue ceftriaxone day 4. Code(s): N39.0 - URINARY TRACT INFECTION, SITE NOT SPECIFIED (2) Frequent falls Current Visit: Yes Status: Acute Assessment & Plan: PT/OT evaluating. Plan for rehab at [facility]. Code(s): R29.6 - REPEATED FALLS (3) Weakness Current Visit: Yes Status: Acute Code(s): R53.1 - WEAKNESS (4) Atrial fibrillation Current Visit: Yes Status: Chronic Qualifiers: Atrial fibrillation type: chronic Qualified Code(s): I48.2 - Chronic atrial fibrillation Assessment & Plan: Rate is controlled with metoprolol and she is on Eliquis for blood thinner. Code(s): I48.91 - UNSPECIFIED ATRIAL FIBRILLATION (5) Dementia Current Visit: Yes Status: Acute Assessment & Plan: Oriented to person, place and time but does not know president of [place]. Family states she does not follow politics. Code(s): F03.90 - UNSPECIFIED DEMENTIA WITHOUT BEHAVIORAL DISTURBANCE (6) Diabetes type 2, controlled Current Visit: Yes Status: Acute Qualifiers: Diabetes mellitus workforce staffing advisor insulin use: without usp use Diabetes mellitus complication status: without complication Qualified Code(s): E11.9 - Type 2 diabetes mellitus without complications Assessment & Plan: She is on an oral diabetes medication. Her Hgb A1C is good. Will add accu checks to monitor for possible hypoglycemia. Code(s): E11.9 - TYPE 2 DIABETES MELLITUS WITHOUT COMPLICATIONS (7) History of CVA (cerebrovascular accident) Current Visit: Yes Status: Acute Assessment & Plan: Old lacunar infarcts seen on head CT on admission. Code(s): Z86.73 - PRSNL HX OF TIA (TIA), AND CEREB INFRC W/O RESID DEFICITS
[2018-12-07] MEDS ORDERED: Klor Con 10 MEQ PO ONE (14:50)
[2018-12-07] MEDS: Sodium Chloride 0.9% 1000 ML 1,000 ML IV SCH (20:25)
[2018-12-07] MEDS: ZOCOR 20MG PO SCH (21:34)
[2018-12-08] MEDS: Amaryl 2 MG PO SCH (08:07)
--- NOTE | 2018-12-08 09:06 | PCM.NOTE ---
Date and Time: 12/08/18903 Subjective Assessment: doing much better - Review of Systems Constitutional: No Fever, No Chills Eyes: No Symptoms Ears, Nose, & Throat: No Symptoms Respiratory: No Cough, No Short Of Breath Cardiac: No Chest Pain, No Edema, No Syncope Abdominal/Gastrointestinal: No Abdominal Pain, No Nausea, No Vomiting, No Diarrhea Genitourinary Symptoms: No Dysuria Musculoskeletal: No Back Pain, No Neck Pain Skin: No Rash Neurological: No Dizziness, No Focal Weakness, No Sensory Changes Psychological: No Symptoms Endocrine: No Symptoms Hematologic/Lymphatic: No Symptoms Immunological/Allergic: No Symptoms Objective Exam General Appearance: no apparent distress, alert Neurologic Exam: alert, oriented x 3, cooperative, normal mood/affect, nml cerebellar function, sensation nml, No motor deficits Skin Exam: normal color, warm, dry Eye Exam: PERRL, EOMI, eyes nml inspection Ears, Nose, Throat Exam: normal ENT inspection, pharynx normal, moist mucous membranes Neck Exam: normal inspection, non-tender, supple, full range of motion Respiratory Exam: normal breath sounds, lungs clear, No respiratory distress Cardiovascular Exam: regular rate/rhythm, normal heart sounds Gastrointestinal/Abdomen Exam: soft, No tenderness, No mass Extremity Exam: normal inspection, normal range of motion Back Exam: normal inspection, normal range of motion, No CVA tenderness, No vertebral tenderness Pelvic Exam: deferred Rectal Exam: deferred OBJECTIVE DATA Vital Signs: Vital Signs - 24 hr Temp Pulse Resp BP Pulse Ox 12/08/18 08:28 98.0 F 75 18 140/65 95 12/08/18 04:21 97.4 F 77 16 156/69 93 L 12/08/18 00:48 74 18 145/71 97 12/07/18 20:11 98.3 F 105 H 18 155/69 95 12/07/18 17:01 97.8 F 82 20 138/80 95 12/07/18 13:07 97.8 F 78 18 142/80 96 Pain Assessment - Last Documented Pain Intensity 0 Pain Scale Used 0-10 Pain Scale Intake and Output: Intake & Output 12/05/18 12/06/18 12/07/18 12/08/18 11:59 11:59 11:59 11:59 Intake Total 7156 5904 2160 9537 Output Total 2142.856.9273 Balance 5133 652 5473 -751 Weight 73.6 kg 73.7 kg 74.1 kg Lab Results: Accuchecks Date 12/07/18 Time 21:30 Accucheck Value: 80 Accucheck Value: 108 Lab Results-Last 24 Hours 12/07/18 12/07/18 12/07/18 Range/Units 12:20 12:20 12:20 WBC 6.8 (4.0-10.5) K/mm3 RBC 4.29 (4.1-5.4) M/mm3 Hgb 13.1 (12.0-16.0) gm/dl Hct 41.8 (35-47) % MCV 97.4 (78-100) fl MCH 30.5 (26-32) pg MCHC 31.3 L (32-36) g/dl RDW 14.8 H (11.5-14.0) % Plt Count 249 (150-450) K/mm3 MPV 11.2 H (6-9.5) fl Gran % 71.7 H (36.0-66.0) % Eos # (Auto) 0.08 (0-0.5) Absolute Lymphs (auto) 1.35 (1.0-4.6) Absolute Monos (auto) 0.47 (0.0-1.3) Lymphocytes % 19.9 L (24.0-44.0) % Monocytes % 6.9 (0.0-12.0) % Eosinophils % 1.2 (0.00-5.0) % Basophils % 0.3 (0.0-0.4) % Absolute Granulocytes 4.88 (1.4-6.9) Basophils # 0.02 (0-0.4) Sodium 142 (137-145) mmol/L Potassium 3.3 L (3.5-5.1) mmol/L Chloride 108 H (98-107) mmol/L Carbon Dioxide 27 (22-30) mmol/L Anion Gap 10.3 (5-15) MEQ/L BUN 7 (7-17) mg/dL Creatinine 0.66 (0.52-1.04) mg/dL Estimated GFR > 60.0 ML/MIN Glucose 97 (74-106) mg/dL Hemoglobin A1c 4.81 (4.5-6.0) % Calcium 8.9 (8.4-10.2) mg/dL Magnesium 2.0 (1.6-2.3) mg/dL TSH 3rd Generation 4.420 (0.47-4.68) mIU/L Radiology Exams: Radiology Procedures Category Date Time Status CHEST 1 VIEW (PORTABLE) Urgent Exams 12/06/18 13:00 Completed Assessment/Plan (1) UTI (urinary tract infection) Current Visit: Yes Status: Acute Qualifiers: Urinary tract infection type: acute pyelonephritis Qualified Code(s): N10 - Acute pyelonephritis Assessment & Plan: Last Vital Signs Temp 98.0 F 12/08/18 08:28 Pulse 75 12/08/18 08:28 Resp 18 12/08/18 08:28 BP 140/65 12/08/18 08:28 Pulse Ox 95 12/08/18 08:28 Allergies codeine [Codeine] Allergy (Mild, Verified 12/04/18 17:16) Nausea meperidine HCl [From Demerol] Allergy (Mild, Verified 12/04/18 17:16) Vomiting Sulfa (Sulfonamide Antibiotics) [Sulfa(Sulfonamide Antibiotics)] Allergy (Mild, Verified 12/04/18 17:16) Vomiting aspirin Adverse Reaction (Verified 12/04/18 17:16) gi bleeding Can not have any aspirin products Active Medications Acetaminophen (Tylenol 325 Mg) 650 mg PO Q4H PRN PRN PRN Reason: PAIN AND/OR FEVER Stop: 01/03/19 17:05 Amlodipine Besylate (Norvasc 5 Mg) 5 mg PO DAILY [facility] Stop: 01/04/19 09:59 Last Admin: 12/07/18 10:04 Dose: 5 mg Apixaban (Eliquis 2.5 Mg Tablet) 2.5 mg PO BID [facility] Stop: 01/03/19 21:59 Last Admin: 12/07/18 21:34 Dose: 2.5 mg Benazepril HCl (Lotensin 10 Mg) 20 mg PO DAILY [facility] Stop: 01/04/19 09:59 Last Admin: 12/07/18 10:03 Dose: 20 mg Calcium Carbonate/Glycine (Tums Ex 750 Mg) 750 mg PO QID PRN PRN Stop: 01/03/19 19:14 Cephalexin HCl (Keflex 500 Mg) 500 mg PO QID [facility] Stop: 01/07/19 09:59 Enoxaparin Sodium (Enoxaparin Sodium) 30 mg SQ Q12H [facility] Stop: 01/07/19 09:14 Glimepiride (Amaryl 2 Mg) 1 mg PO BREAKFAST [facility] Stop: 01/04/19 07:59 Last Admin: 12/08/18 08:07 Dose: 1 mg Insulin Aspart (Novolog Insulin) 0 unit SQ UD PRN PRN Reason: HYPERGLYCEMIA Stop: 01/06/19 14:28 Metoprolol Succinate (Toprol Xl 50 Mg) 50 mg PO BID [facility] Stop: 01/03/19 21:59 Last Admin: 12/07/18 21:34 Dose: 50 mg Ondansetron HCl (Zofran 4 Mg/2 Ml Vial) 4 mg IV Q6H PRN PRN PRN Reason: NAUSEA/VOMITING Stop: 01/03/19 17:05 Simvastatin (Zocor 20mg) 40 mg PO HS [facility] Stop: 01/04/19 21:59 Last Admin: 12/07/18 21:34 Dose: 40 mg Intake & Output 12/07/18 12/08/18 11:59 11:59 Intake Total 2169 1824 Output Total 850 2575 Balance 1319 -751 Weight 74.1 kg Orders 12/08/18 09:15 Enoxaparin Sodium [Enoxaparin Sodium] 30 mg SQ Q12H 12/08/18 10:00 Cephalexin Mh 500 mg [Keflex 500 mg] 500 mg PO QID Lab Tests 12/07/18 12/07/18 12/07/18 12:20 12:20 12:20 WBC 6.8 RBC 4.29 Hgb 13.1 Hct 41.8 MCV 97.4 MCH 30.5 MCHC 31.3 L RDW 14.8 H Plt Count 249 MPV 11.2 H Gran % 71.7 H Eos # (Auto) 0.08 Absolute Lymphs (auto) 1.35 Absolute Monos (auto) 0.47 Lymphocytes % 19.9 L Monocytes % 6.9 Eosinophils % 1.2 Basophils % 0.3 Absolute Granulocytes 4.88 Basophils # 0.02 Sodium 142 Potassium 3.3 L Chloride 108 H Carbon Dioxide 27 Anion Gap 10.3 BUN 7 Creatinine 0.66 Estimated GFR > 60.0 Glucose 97 Hemoglobin A1c 4.81 Calcium 8.9 Magnesium 2.0 TSH 3rd Generation 4.420 Code(s): N39.0 - URINARY TRACT INFECTION, SITE NOT SPECIFIED (2) Frequent falls Current Visit: Yes Status: Resolved Code(s): R29.6 - REPEATED FALLS (3) Weakness Current Visit: Yes Status: Resolved Code(s): R53.1 - WEAKNESS (4) Atrial fibrillation Current Visit: Yes Status: Chronic Qualifiers: Atrial fibrillation type: chronic Qualified Code(s): I48.2 - Chronic atrial fibrillation Code(s): I48.91 - UNSPECIFIED ATRIAL FIBRILLATION
[2018-12-08] MEDS: KEFLEX 500 MG PO SCH ×4 (09:14→22:40)
[2018-12-08] MEDS: ELIQUIS 2.5 MG TABLET PO SCH ×2 (09:14→22:40)
[2018-12-08] MEDS: Lotensin 10 MG PO SCH (09:15)
[2018-12-08] MEDS: NORVASC 5 MG PO SCH (09:15)
[2018-12-08] MEDS: Toprol Xl 50 MG PO SCH ×2 (09:49→22:40)
[2018-12-08] MEDS ORDERED: ENOXAPARIN SODIUM SQ SCH (10:00)
[2018-12-08] MEDS: ZOCOR 20MG PO SCH (22:40)
[2018-12-09] MEDS ORDERED: MORPHINE SULFATE 4 MG INJ IV PRN (06:08)
[2018-12-09 07:08] VITALS: BP 138/60; PULSE 76
[2018-12-09 08:04] VITALS: O2SAT 96
--- NOTE | 2018-12-09 08:43 | XRAY ---
Indication: Pain following fall. Comparison: None AP pelvis and 2 views of the left hip demonstrates slightly impacted left femur neck fracture. Elsewhere osteopenia, moderate lower lumbar degenerative spondylosis, and moderate scattered vascular calcifications. Comment: Preliminary interpretation was made by [facility]. No discrepancy.
[2018-12-09 10:40] LABS: Appearance CLEAR (CLEAR); Bacteria RARE /HPF (NEGATIVE); Bilirubin NEGATIVE (NEGATIVE); Blood LARGE Ery/ul (0-5); Glucose NEGATIVE (NEGATIVE); Ketones NEGATIVE (NEGATIVE); Leukocyte Esterase TRACE (NEGATIVE); Nitrite NEGATIVE (NEGATIVE); Protein,Urine Dip NEGATIVE (Negative); Specific Gravity 1.006 (1.005-1.025); Urobilinogen NEGATIVE mg/dL (0-1); WBC 0-2 /HPF (0-5)
--- NOTE | 2018-12-09 12:32 | PCM.DS ---
Discharge Summary Date of Admission: 12/04/18 17:00 Admitting Physician: LAILA MCFARLAND Primary Care Provider: LAILA MCFARLAND Allergies Allergies codeine [Codeine] Allergy (Mild, Verified 12/04/18 17:16) Nausea meperidine HCl [From Demerol] Allergy (Mild, Verified 12/04/18 17:16) Vomiting Sulfa (Sulfonamide Antibiotics) [Sulfa(Sulfonamide Antibiotics)] Allergy (Mild, Verified 12/04/18 17:16) Vomiting aspirin Adverse Reaction (Verified 12/04/18 17:16) gi bleeding Can not have any aspirin products Hospital Summary - Hospital Course Hospital Course: Chief Complaint Diagnosis ACUTE PYELONEPHRITIS, FREQUENT FALLS Allergies Allergy/AdvReac Type Severity Reaction Status Date / Time codeine [Codeine] Allergy Mild Nausea Verified 12/04/18 17:16 meperidine HCl [From Demerol] Allergy Mild Vomiting Verified 12/04/18 17:16 Sulfa (Sulfonamide Allergy Mild Vomiting Verified 12/04/18 17:16 Antibiotics) [Sulfa(Sulfonamide Antibiotics)] aspirin AdvReac gi bleeding Verified 12/04/18 17:16 Vital Signs (Last 24 hours) Temp Pulse Resp BP Pulse Ox 12/09/18 07:07 98.8 F 76 18 138/60 96 12/09/18 00:00 98.6 F 64 16 110/57 97 12/08/18 20:00 99.4 F 71 16 125/61 99 12/08/18 16:24 98.1 F 74 18 143/67 98 Home Medications Medication Instructions Recorded Confirmed Last Taken Type Calcium Carbonate [Tums] 1 tab PO QID PRN 12/04/18 12/04/18 Unknown History Current Medications Generic Name Dose Route Start Last Admin Trade Name Freq PRN Reason Stop Dose Admin Acetaminophen 650 mg 12/04/18 17:06 Tylenol 325 Mg PO 01/03/19 17:05 Q4H PRN PRN PAIN AND/OR FEVER Amlodipine Besylate 5 mg 12/05/18 10:00 12/08/18 09:15 Norvasc 5 Mg PO 01/04/19 09:59 5 mg DAILY SHARYN Administration Benazepril HCl 20 mg 12/05/18 10:00 12/08/18 09:15 Lotensin 10 Mg PO 01/04/19 09:59 20 mg DAILY SHARYN Administration Calcium Carbonate/Glycine 750 mg 12/04/18 19:15 Tums Ex 750 Mg PO 01/03/19 19:14 QID PRN PRN Cephalexin HCl 500 mg 12/08/18 10:00 12/08/18 22:40 Keflex 500 Mg PO 01/07/19 09:59 500 mg QID SHARYN Administration Glimepiride 1 mg 12/05/18 08:00 12/08/18 08:07 Amaryl 2 Mg PO 01/04/19 07:59 1 mg BREAKFAST SHARYN Administration Heparin Sodium (Beef Lung) 500 units 12/08/18 18:44 12/09/18 07:56 Heparin Lock Flush 100 Units/Ml 5ml Syringe PORT FLUSH 01/07/19 18:43 500 units PRN PRN Administration IV PORT FLUSH Insulin Aspart 0 unit 12/07/18 14:29 Novolog Insulin SQ 01/06/19 14:28 UD PRN HYPERGLYCEMIA Metoprolol Succinate 50 mg 12/04/18 22:00 12/08/18 22:40 Toprol Xl 50 Mg PO 01/03/19 21:59 50 mg BID SHARYN Administration Morphine Sulfate 4 mg 12/09/18 06:08 12/09/18 06:15 Morphine Sulfate 4 Mg Inj IV 12/14/18 06:07 4 mg Q2H PRN PRN Administration PAIN Ondansetron HCl 4 mg 12/04/18 17:06 Zofran 4 Mg/2 Ml Vial IV 01/03/19 17:05 Q6H PRN PRN NAUSEA/VOMITING Simvastatin 40 mg 12/05/18 22:00 12/08/18 22:40 Zocor 20mg PO 01/04/19 21:59 40 mg HS SHARYN Administration Discontinued Medications Generic Name Dose Route Start Last Admin Trade Name Freq PRN Reason Stop Dose Admin Apixaban 2.5 mg 12/04/18 22:00 12/08/18 22:40 Eliquis 2.5 Mg Tablet PO 01/03/19 21:59 2.5 mg BID SHARYN Administration Enoxaparin Sodium 30 mg 12/08/18 10:00 Enoxaparin Sodium SQ 01/07/19 09:59 Q12HT SHARYN Sodium Chloride 1,000 mls @ 100 mls/hr 12/04/18 10:45 12/04/18 11:36 Sodium Chloride 0.9% 1000 Ml IV 01/03/19 10:44 100 mls/hr .Q10H SHARYN Administration Ceftriaxone Sodium/Dextrose 1 g in 50 mls @ 100 mls/hr 12/04/18 15:54 16:48 Rocephin 1 Gm-D5w 50 Ml Bag IV 12/04/18 16:23 Infused STAT STA Infusion Ceftriaxone Sodium/Dextrose Confirm 12/04/18 15:58 Rocephin 1 Gm-D5w 50 Ml Bag Administered 12/04/18 15:59 Dose 1 g in 50 mls @ ud IV .STK-MED ONE Sodium Chloride Confirm 12/04/18 11:30 Sodium Chloride 0.9% 1000 Ml Administered 12/04/18 11:31 Dose 1,000 mls @ ud .ROUTE .STK-MED ONE Ceftriaxone Sodium/Dextrose 1 g in 50 mls @ 100 mls/hr 12/05/18 10:00 10:04 Rocephin 1 Gm-D5w 50 Ml Bag IV 01/04/19 09:59 100 mls/hr Q24H10 SHARYN Administration Sodium Chloride 1,000 mls @ 30 mls/hr 12/04/18 17:06 12/07/18 20:25 Sodium Chloride 0.9% 1000 Ml IV 01/03/19 17:05 50 mls/hr .Q24H SHARYN Administration Potassium Chloride 20 meq 12/07/18 14:50 12/07/18 14:55 Klor Con 10 Meq PO 12/07/18 14:51 20 meq STAT ONE Administration Simvastatin 10 mg 12/04/18 22:00 12/04/18 22:47 Zocor 10mg PO 01/03/19 21:59 10 mg HS SHARYN Administration Intake & Output (Last 24 hours) 12/07/18 12/08/18 12/09/18 12/10/18 11:59 11:59 11:59 11:59 Intake Total 2169 1824 1440 Output Total 503 5035 1600 Balance 5599 -748 -426 Weight 74.1 kg 77 kg Microbiology Results (Last 24 hours) 12/09/18 07:30 Urine, Catheterized Urine Culture - Pending Laboratory Results (Last 24 hours) 12/09/18 07:30 Urine Color STRAW Urine Appearance CLEAR Urine pH 6.0 Ur Specific [employer] 1.006 Urine Protein NEGATIVE Urine Ketones NEGATIVE Urine Blood LARGE Urine Nitrite NEGATIVE Urine Bilirubin NEGATIVE Urine Urobilinogen NEGATIVE Ur Leukocyte Esterase TRACE Urine WBC (Auto) 0-2 Urine RBC (Auto) 6-10 U Epithel Cells (Auto) NONE Urine Bacteria (Auto) RARE Urine Culture Reflexed YES Urine Glucose NEGATIVE Orders (Last 24 hours) Category Date Time Status Catheter Care Record Q6H Care 12/09/18 09:11 Active Maldonado [Catheter-[place] Maldonado] STAT Care 12/09/18 09:10 Active Neuro Checks Q2H Care 12/09/18 08:00 Active Infection Control Consult ROUTINE Cons 12/09/18 09:45 Active Discharge Routine Discharge 12/09/18 07:00 Ordered HIP UNI (2V) INCL PEL IF DONE Stat Exams 12/09/18 05:30 Completed CULTURE,URINE Routine Lab 12/09/18 07:30 Received UA W/RFX UR CULTURE Routine Lab 12/09/18 07:30 Completed Heparin Flush 500 units/5 ml [Heparin Lock Flush 100 Med 12/08/18 18:44 Active Units/ml 5ml Syringe] 500 units PORT FLUSH PRN PRN Morphine Sulfate 4 mg Inj Med 12/09/18 06:08 Active 4 mg IV Q2H PRN PRN Patient Care Notes (Last 24 hours) 12/09/18 11:04 Nursing Note by Harmony Peraza patient left with EMS to transfer to [facility] Initialized on 12/09/18 11:04 - END OF NOTE 12/09/18 08:44 Nursing Note by Harmony Peraza report called to Shalini at [facility] at 0840am Initialized on 12/09/18 08:44 - END OF NOTE 12/09/18 05:25 (created 12/09/18 08:04) Nursing Note by Lynda Lagunas [id number] Pt found sitting down on floor outside her room in hallway. Fall was not witnessed. Yelled for hospitality housekeeper Dilcia Salas RN to assist me. Pt in no distress. VS 136/75, pulse 72. Pt c/o left hip pain. Left leg turned outward. Pt complaints pain with movement of that extremetiy. No bruising noted. Pt states "I was going to bathroom." Pt had refused to sleep in bed this shift.Slept in chair. account supervisor called ER to get help transfering pt to w /c. PPP+ BLE. Pt able to move both LE. [address] Betancourt to report status. Orders received for left hip XR, and to stop Eliquis and Lovenox. Pt to xray via w/c with assist of hospitality housekeeper and ER staff. 0605 Family called (son). 0605. Right chest port accessed with 1" Scott needle under sterile technique. Morphine 4 mg IV given for pain. 0650 Family at bedside. Initialized on 12/09/18 08:04 - END OF NOTE - Vitals & Intake/Output Vital Signs: Vital Signs Temperature 98.8 F 12/09/18 07:07 Pulse Rate 76 12/09/18 07:07 Respiratory Rate 18 12/09/18 07:07 Blood Pressure 138/60 12/09/18 07:07 O2 Sat by Pulse Oximetry 96 12/09/18 07:07 Intake & Output: Intake & Output 12/07/18 12/08/18 12/09/18 12/10/18 11:59 11:59 11:59 11:59 Intake Total 2169 1824 1440 Output Total 850 2575 1600 Balance 1319 -751 -160 Weight 74.1 kg 77 kg - Lab Result Diagrams: 12/07/18 12:20 12/07/18 12:20 Lab Results-Last 24 Hrs: Accuchecks Date 12/09/18 Date 12/08/18 Date 12/08/18 Time 07:30 Time 22:00 Time 21:00 Accucheck Value: 89 Accucheck Value: 154 Accucheck Value: 79 Accucheck Value: 91 Lab Results-Last 24 Hours 12/09/18 Range/Units 07:30 Urine Color STRAW (YELLOW) Urine Appearance CLEAR (CLEAR) Urine pH 6.0 (5-6) Ur Specific [employer] 1.006 (1.005-1.025) Urine Protein NEGATIVE (Negative) Urine Ketones NEGATIVE (NEGATIVE) Urine Blood LARGE (0-5) Raimundo/ul Urine Nitrite NEGATIVE (NEGATIVE) Urine Bilirubin NEGATIVE (NEGATIVE) Urine Urobilinogen NEGATIVE (0-1) mg/dL Ur Leukocyte Esterase TRACE (NEGATIVE) Urine WBC (Auto) 0-2 (0-5) /HPF Urine RBC (Auto) 6-10 (0-2) /HPF U Epithel Cells (Auto) NONE (FEW) /HPF Urine Bacteria (Auto) RARE (NEGATIVE) /HPF Urine Culture Reflexed YES (NO) Urine Glucose NEGATIVE (NEGATIVE) mg/dL Micro Results-Entire Visit: Microbiology 12/04/18 14:45 Urine Culture - Final Clean Catch Midstream MIXED VIVIANA; 3 OR MORE TYPES. NO PREDOMINANT ORGANISM. NO FURTHER WORKUP. PLEASE RESUBMIT IF CLINICALLY INDICATED. Accuchecks Date 12/09/18 Date 12/08/18 Date 12/08/18 Time 07:30 Time 22:00 Time 21:00 Accucheck Value: 89 Accucheck Value: 154 Accucheck Value: 79 Accucheck Value: 91 - Radiology Exams Ordered Rad Exams-Entire Visit: Radiology Procedures Category Date Time Status HIP UNI (2V) INCL PEL IF DONE Stat Exams 12/09/18 05:30 Completed - Procedures and Test Procedures and Tests throughout Hospitalization: Therapy Orders & Screens 12/04/18 19:00 OT Screen per Nursing Assess Comment: Protocol Order Physician Instructions: Greater than 3 points order OT Admission Screening Reason For Exam: Triggered on Admission Diagnosis: UTI weakness failure to thrive fall Open Wound/Cellutlitis/Pressure Ulcers: Yes Acute Fx/ORIF/Change in wt bearing status: No Severe MUSCULOSKELETAL pain: No ADL Dysfunction: Yes Acute CVA w/Hemiparesis/Hemiplegia: No Decreased Functional Mobility/Strength: Yes Sprain/Strain: No Acute Post-op Mobility Dysfunction: No Total Points: 9 PT Screen per Nursing Assess ONCE Comment: Protocol Order Physician Instructions: Greater than 3 points order PT Admission Screenin Reason For Exam: Triggered on Admission Diagnosis: UTI weakness failure to thrive fall Open Wound/Cellutlitis/Pressure Ulcers: Yes Acute Fx/ORIF/Change in wt bearing status: No Severe MUSCULOSKELETAL pain: No ADL Dysfunction: Yes Acute CVA w/Hemiparesis/Hemiplegia: No Decreased Functional Mobility/Strength: Yes Sprain/Strain: No Acute Post-op Mobility Dysfunction: No Total Points: 9 12/05/18 09:05 PT Eval & Treat ( Order) ROUTINE Reason for Eval:: P.T. EVAL AND TREAT Diagnosis: ACUTE PYELONEPHRITIS, FREQUENT FALLS Discharge Exam General Appearance: no apparent distress, alert Neurologic Exam: alert, oriented x 3, cooperative, normal mood/affect, nml cerebellar function, sensation nml, No motor deficits Skin Exam: normal color, warm, dry Eye Exam: PERRL, EOMI, eyes nml inspection Ears, Nose, Throat Exam: normal ENT inspection, pharynx normal, moist mucous membranes Neck Exam: normal inspection, non-tender, supple, full range of motion Respiratory Exam: normal breath sounds, lungs clear, No respiratory distress Cardiovascular Exam: regular rate/rhythm, normal heart sounds Gastrointestinal/Abdomen Exam: soft, No tenderness, No mass Extremity Exam: normal inspection, normal range of motion Back Exam: normal inspection, normal range of motion, No CVA tenderness, No vertebral tenderness Pelvic Exam: deferred Rectal Exam: deferred Final Diagnosis/Problem List - Final Discharge Diagnosis/Problem (1) UTI (urinary tract infection) Current Visit: Yes Status: Acute Code(s): N39.0 - URINARY TRACT INFECTION, SITE NOT SPECIFIED (2) Frequent falls Current Visit: Yes Status: Resolved Code(s): R29.6 - REPEATED FALLS (3) Weakness Current Visit: Yes Status: Resolved Code(s): R53.1 - WEAKNESS (4) Atrial fibrillation Current Visit: Yes Status: Chronic Code(s): I48.91 - UNSPECIFIED ATRIAL FIBRILLATION - Discharge Discharge Date: 12/09/18 Disposition: DC TO [facility] Condition: Stable Prescriptions: No Action Glimepiride 1 tab PO DAILY Pravastatin Sodium 1 tab PO HS Amlodipine Besylate/Benazepril [Lotrel 5-20 mg Capsule] 1 tab PO DAILY Metoprolol Succinate [Toprol Xl] 50 mg PO BID Apixaban [Eliquis] 2.5 mg PO BID Calcium Carbonate [Tums] 1 tab PO QID PRN Follow up with: LAILA MCFARLAND MD [Primary Care Provider] - 1 Week
== END 2018-12-09 09:43 | disposition home or self-care (01) ==
LOC: ED 09:57 → MED SURG 17:00
PROVIDERS: ADMIT General Practice; ATTEND General Practice
DX: N39.0 Urinary tract infection, site not specified (principal); S72.002A Fracture of unspecified part of neck of left femur, initial encounter for closed fracture; R29.6 Repeated falls; R53.1 Weakness; I48.91 Unspecified atrial fibrillation; F03.90 Unspecified dementia, unspecified severity, without behavioral disturbance, psychotic disturbance, mood disturbance, and anxiety; Z79.01 Long term (current) use of anticoagulants; Z79.899 Other long term (current) drug therapy; S00.93XA Contusion of unspecified part of head, initial encounter; S00.83XA Contusion of other part of head, initial encounter; S20.229A Contusion of unspecified back wall of thorax, initial encounter; W19.XXXA Unspecified fall, initial encounter; Z86.73 Personal history of transient ischemic attack (TIA), and cerebral infarction without residual deficits; Y93.9 Activity, unspecified; Y92.230 Patient room in hospital as the place of occurrence of the external cause
CPT/HCPCS: 36415; 70450; 70486; 71045; 72128; 73502; 80048; 80053; 81001; 82962; 83036; 83735; 84134; 84443; 84484; 85025; 85027; 87086; 93005; 93041; 96360; 96361; 96365; 97110; 97161; 97530; 99285; G0378; J0696; J1642; J2270; A9270-GY

== ENCOUNTER 2018-12-17 16:19 | Emergency (ER) | payer MEDICARE ==
--- NOTE | 2018-12-17 16:46 | ERPHSYRPT ---
- History of Present Illness Time Seen by Provider: 12/17/18 16:36 Source: patient Exam Limitations: no limitations, other (patient with history of dementia) Patient Subjective Stated Complaint: Pt states "I fell and hit my head. My right arm and right leg hurt. I hurt all over." Triage Nursing Assessment: Pt presnted via medic 1 and placed in room 3. PT presented with C-collar in place, alert and oriented X 3, skin pwd. PT able to move all extremeties. Pt has small redness to forehead, tenderness and pain to right arm and right leg. No respiratory distress noted. Physician History: 88-year-old white female with history of dementia arrives with complaint of pain in her head, pain in bilateral arms, pain in her right hip after falling out of the chair at the [place] [facility]. Patient without loss of consciousness patient is on Elequis. Past medical history includes dementia, cataracts, arrhythmia, peripheral vascular disease, bronchitis, COPD, diabetes type 2, arthritis, GERD, atrial flutter Past surgical history includes cholecystectomy, hysterectomy, left ankle surgery , salivary gland removed from the right side of the neck. Timing/Duration: today Severity: moderate Modifying Factors: Improves With: nothing Associated Symptoms: other (pain bilateral arms, right hip), No nausea, No vomiting, No abdominal pain, No shortness of breath, No heartburn, No diaphoresis, No cough, No chills, No chest pain, No fever, No headaches, No loss of appetite, No malaise, No rash, No syncope, No seizure, No weakness Allergies/Adverse Reactions: codeine [Codeine] Allergy (Mild, Verified 12/04/18 17:16) Nausea meperidine HCl [From Demerol] Allergy (Mild, Verified 12/04/18 17:16) Vomiting Sulfa (Sulfonamide Antibiotics) [Sulfa(Sulfonamide Antibiotics)] Allergy (Mild, Verified 12/04/18 17:16) Vomiting aspirin Adverse Reaction (Verified 12/04/18 17:16) gi bleeding Can not have any aspirin products Home Medications: Amlodipine Besylate/Benazepril [Lotrel 5-20 mg Capsule] 1 tab PO DAILY 03/06/12 [History] Glimepiride 1 tab PO DAILY 03/06/12 [History] Pravastatin Sodium 1 tab PO HS 03/06/12 [History] Metoprolol Succinate [Toprol Xl] 50 mg PO BID 07/29/14 [History] Apixaban [Eliquis] 2.5 mg PO BID 11/13/14 [History] Calcium Carbonate [Tums] 1 tab PO QID PRN 12/04/18 [History] Hx Tetanus, Diphtheria Vaccination/Date Given: Yes Hx Influenza Vaccination/Date Given: No Hx Pneumococcal Vaccination/Date Given: No Immunizations Up to Date: Yes - Review of Systems Constitutional: No Fever, No Chills Eyes: No Symptoms Ears, Nose, & Throat: No Symptoms Respiratory: No Cough, No Dyspnea Cardiac: No Chest Pain, No Edema, No Syncope Abdominal/Gastrointestinal: No Abdominal Pain, No Nausea, No Vomiting, No Diarrhea Genitourinary Symptoms: No Dysuria Musculoskeletal: Other (pain bilateral arms right hip) Skin: Other (abrasion to forehead) Neurological: No Symptoms Psychological: No Symptoms Endocrine: No Symptoms All Other Systems: Reviewed and Negative - Past Medical History Pertinent Past Medical History: Yes Neurological History: Dementia ENT History: Cataracts Cardiac History: Arrhythmia, Peripheral Vascular Disease, Other Respiratory History: CHF Endocrine Medical History: Diabetes Type II Musculoskeletal History: Arthritis GI Medical History: GERD History: No Pertinent History Psycho-Social History: No Pertinent History Female Reproductive Disorders: No Pertinent History Other Medical History: atrial fib - Past Surgical History Past Surgical History: Yes Neuro Surgical History: No Pertinent History Cardiac: No Pertinent History Respiratory: No Pertinent History Gastrointestinal: Cholecystectomy Genitourinary: No Pertinent History Musculoskeletal: Orthopedic Surgery Female Surgical History: Hysterectomy Other Surgical History: left ankle surgery 1951,salivary gland exc. right neck , - Social History Smoking Status: Former smoker How long have you smoked: 15years Exposure to second hand smoke: No Drug Use: none Patient Lives Alone: No - Female History Hx Now: No - Nursing Vital Signs Nursing Vital Signs: Initial Vital Signs Temperature 98.1 F 12/17/18 16:21 Pulse Rate 90 12/17/18 16:21 Respiratory Rate 22 12/17/18 16:21 Blood Pressure 132/71 12/17/18 16:21 O2 Sat by Pulse Oximetry 98 12/17/18 16:21 Pain Scale Pain Intensity 4 - Physical Exam General Appearance: mild distress, alert, other (elderly white female abrasion to forehead states she hurts wherever touched) Eye Exam: PERRL/EOMI, eyes nml inspection Ears, Nose, Throat Exam: normal ENT inspection, TMs normal, pharynx normal, moist mucous membranes Neck Exam: other (Neck in c-collar) Respiratory Exam: normal breath sounds, lungs clear, No respiratory distress Cardiovascular Exam: regular rate/rhythm, capillary refill <2 sec Gastrointestinal/Abdomen Exam: soft, normal bowel sounds, No tenderness, No mass Back Exam: normal inspection, normal range of motion, No CVA tenderness, No vertebral tenderness Extremity Exam: other (patient states both arms painful with touching several abrasions to forearms) Neurologic Exam: alert, cooperative, student life dean II-XII nml as tested, other (oriented to person) Skin Exam: normal color, warm, dry, No rash Lymphatic Exam: No adenopathy SpO2 Interpretation: normal (98%) SpO2: 98 - Course Nursing assessment & vital signs reviewed: Yes EKG Interpreted by Me: RATE (111 bpm), Sinus Tach, NORMAL AXIS, Other (EKG: Atrial fibrillation,with PVC, 100beats per minute, normal axis, no acute ST or T wave changes) - Radiology Exams Left Humerus X-ray Interpretation: Interpreted by me (x-ray left humerus negative fracture negative subluxation) Right Humerus X-ray Interpretation: Interpreted by me (x-ray right humerus negative fracture negative subluxation) Right Hip X-ray Interpretation: Interpreted by me (x-ray right hip with pelvis: Negative fracture negative subluxation) Chest X-ray Interpretation: Interpreted by me (chest x-ray:no acute disease process noted.) - CT Exams Cervical Spine CT Interpretation: Discussed w/radiologist (CT cervical spine impression 1. Negative acute fractureor subluxation. 2. Osteopenia and multilevel degenerative changes. 3. Right apical pleural effusion) Head CT Interpretation: Discussed w/radiologist (head CT: Stable, nonacute, senile brain with old right basal ganglia lacunar infarct.) Ordered Tests: Active Orders 24 hr Category Date Time Status EKG-ER Only STAT Care 12/17/18 16:46 Active IV Insertion STAT Care 12/17/18 16:41 Active Wound Care STAT Care 12/17/18 18:40 Active CERVICAL SPINE WO CONTRAST [CT] Stat Exams 12/17/18 16:39 Completed CHEST 1 VIEW (PORTABLE) Stat Exams 12/17/18 16:39 Taken HEAD WITHOUT CONTRAST [CT] Stat Exams 12/17/18 16:39 Completed HIP UNI (2V) INCL PEL IF DONE Stat Exams 12/17/18 16:40 Taken HUMERUS Stat Exams 12/17/18 16:40 Taken HUMERUS Stat Exams 12/17/18 16:41 Taken CBC W DIFF Stat Lab 12/17/18 16:40 Completed CMP Stat Lab 12/17/18 16:40 Completed Medication Summary Discontinued Medications Generic Name Dose Route Start Last Admin Trade Name Freq PRN Reason Stop Dose Admin Bacitracin Zinc 0.9 gm 12/17/18 18:40 Baciguent Packet TP 12/17/18 18:41 STAT ONE Lab/Rad Data: Laboratory Result Diagrams 12/17/18 16:40 12/17/18 16:40 Laboratory Results 12/17/18 12/17/18 Range/Units 16:40 16:40 WBC 8.9 (4.0-10.5) K/mm3 RBC 3.74 L (4.1-5.4) M/mm3 Hgb 11.6 L (12.0-16.0) gm/dl Hct 36.8 (35-47) % MCV 98.4 (78-100) fl MCH 31.0 (26-32) pg MCHC 31.5 L (32-36) g/dl RDW 15.6 H (11.5-14.0) % Plt Count 386 (150-450) K/mm3 MPV 10.5 H (6-9.5) fl Gran % 75.2 H (36.0-66.0) % Eos # (Auto) 0.06 (0-0.5) Absolute Lymphs (auto) 1.20 (1.0-4.6) Absolute Monos (auto) 0.91 (0.0-1.3) Lymphocytes % 13.6 L (24.0-44.0) % Monocytes % 10.3 (0.0-12.0) % Eosinophils % 0.7 (0.00-5.0) % Basophils % 0.2 (0.0-0.4) % Absolute Granulocytes 6.66 (1.4-6.9) Basophils # 0.02 (0-0.4) Sodium 138 (137-145) mmol/L Potassium 4.1 (3.5-5.1) mmol/L Chloride 104 (98-107) mmol/L Carbon Dioxide 28 (22-30) mmol/L Anion Gap 10.7 (5-15) MEQ/L BUN 10 (7-17) mg/dL Creatinine 0.64 (0.52-1.04) mg/dL Estimated GFR > 60.0 ML/MIN Glucose 74 (74-106) mg/dL Calcium 9.1 (8.4-10.2) mg/dL Total Bilirubin 0.60 (0.2-1.3) mg/dL AST 34 (14-36) U/L ALT 26 (0-35) U/L Alkaline Phosphatase 106 (38-126) U/L Serum Total Protein 5.9 L (6.3-8.2) g/dL Albumin 2.6 L (3.5-5.0) g/dL - Progress Progress: improved Progress Note: 12/17/18 18:35 88-year-old white female who lives at a [place] [facility] apparently fell out of a chair she has an abrasion on her head patient with chronic dementia she is complaining of bilateral arm pain she has some skin abrasions on her forearms. She has pain in her right hip. X-ray of her bilateral arms no fractures x-ray of her right hip with pelvis no fractures. Head CT no acute fractures CT C-spine no acute fractures. Patient was EKG atrial fibrillation 1 11 bpm normal axis no acute ST or T wave changes noted some PVCs are noted. Patient's chest x-ray no acute disease process noted. Patient was noted on CT C-spine to have a right apical effusion. 12/17/18 18:37 Patient's CBC CMP essentially normal. 12/17/18 18:45 Patient is not in acute distress at this time Patient's CBC CMP EKG are stable does have atrial fibrillation no acute changes. Patient's head CT remarkable for stable nonacute senile brain with old right basal ganglia lacunar infarct. Patient's CT C-spine impression 1 negative acute fracture/subluxation. 2. Osteopenia and multilevel degenerative changes. 3. Right apical pleural effusion Patient's chest x-ray no acute disease process noted patient's right hip no fracture no subluxation pelvis no acute fracture or prosthetic hip noted in the left hip on pelvic exam Patient did have abrasions to her forearms. I've discussed the patient's case with Dr. Mcfarland he does state the patient's apical perfusion his old. Will go ahead and have nurses clean the patient's abrasions apply bacitracin discharge patient patient to get Tylenol as needed for pain. - Departure Departure Disposition: Extended Care Facility Clinical Impression: Abrasions of multiple sites, Bilateral arm pain, Right hip pain Accidental fall Qualifiers: Encounter type: initial encounter Qualified Code(s): W19.XXXA - Unspecified fall, initial encounter Head contusion Qualifiers: Encounter type: initial encounter Contusion of head detail: unspecified part of head Qualified Code(s): S00.93XA - Contusion of unspecified part of head, initial encounter Dementia Qualifiers: Dementia type: unspecified type Dementia behavioral disturbance: without behavioral disturbance Qualified Code(s): F03.90 - Unspecified dementia without behavioral disturbance Condition: Fair Critical Care Time: No Referrals: LAILA MCFARLAND MD [Primary Care Provider] - Instructions: Contusion (DC), Preventing Falls Additional Instructions: Return home. Bacitracin to abrasions to area until healed. Tylenol every 4 hours as needed for pain. Continue current medications and treatments. Follow-up with Dr. Mcfarland. Return for acute distress or for severe symptoms.
[2018-12-17 16:59] LABS: BASOPHIL % 0.2 % (0.0-0.4); Basophil (Absolute #) 0.02 (0-0.4); Eosinophil % 0.7 % (0.00-5.0); Eosinophil (Absolute #) 0.06 (0-0.5); Granulocyte Absolute (ANC) 6.66 (1.4-6.9); Granulocytes % 75.2 % (36.0-66.0); Hematocrit 36.8 % (35-47); Hemoglobin 11.6 gm/dl (12.0-16.0); Lymphocytes % 13.6 % (24.0-44.0); Mean Cell Volume 98.4 fl (78-100); Mean Corpuscular Hgb Concent. 31.5 g/dl (32-36); Mean Platelet Volume 10.5 fl (6-9.5); Monocyte (Absolute #) 0.91 (0.0-1.3); Monocytes % 10.3 % (0.0-12.0); Platelet Count 386 K/mm3 (150-450); Red Blood Count 3.74 M/mm3 (4.1-5.4); Red Cell Distribution Width 15.6 % (11.5-14.0); White Blood Count 8.9 K/mm3 (4.0-10.5)
--- NOTE | 2018-12-17 17:13 | XRAY ---
Indication: Pain following fall. Multiple contiguous axial images obtained through the cervical spine. Sagittal and coronal reformatted images obtained. Comparison: None Age-related osteopenia. Axial images negative for acute fracture, suspicious bony lesions, or spinal canal stenosis. Mild/moderate C3-T1 degenerative endplate spurring and bilateral degenerative facet hypertrophy. Sagittal and coronal reformatted images demonstrates normal alignment. Mild C3-C7 disc space narrowing. No acute compression fracture, subluxation, or jumped facet. Normal-appearing craniocervical junction. Visualized noncontrasted soft tissues demonstrates scattered vascular calcifications bilaterally, small right apical effusion, and partially visualized right neck Port-A-Cath. Impression: 1. Negative acute fracture/subluxation. 2. Osteopenia and multilevel degenerative changes. 3. Right apical pleural effusion. CTDI 52.09
--- NOTE | 2018-12-17 17:14 | XRAY ---
Indication: Status post fall. Multiple contiguous axial images obtained through the head without contrast. Comparison: December 04, 2018. Again age-appropriate global atrophy, mild periventricular degenerative micro-ischemia bilaterally, and remote right basal ganglia lacunar infarct. No acute intracranial hemorrhage, abnormal extra-axial fluid collection, or mass effect. Fourth ventricle is midline without hydrocephalus. Bony calvarium intact. Visualized paranasal sinuses and mastoid air cells are clear. Impression: Stable nonacute senile brain again with old right basal ganglia lacunar infarct. CTDI 51.03
[2018-12-17 17:21] LABS: ALBUMIN 2.6 g/dL (3.5-5.0); ALKALINE PHOSPHATASE 106 U/L (38-126); ANION GAP 10.7 MEQ/L (5-15); BLOOD UREA NITROGEN 10 mg/dL (7-17); CHLORIDE 104 mmol/L (98-107); Calcium 9.1 mg/dL (8.4-10.2); Carbon Dioxide 28 mmol/L (22-30); Creatinine 1 0.64 mg/dL (0.52-1.04); Glucose 74 mg/dL (74-106); Potassium 4.1 mmol/L (3.5-5.1); SGOT/AST 34 U/L (14-36); SGPT/ALT 26 U/L (0-35); SODIUM 138 mmol/L (137-145); Total Protein 5.9 g/dL (6.3-8.2)
[2018-12-17 18:40] VITALS: O2SAT 98
[2018-12-17] MEDS ORDERED: BACIGUENT PACKET TP ONE (18:40)
[2018-12-17] MEDS ORDERED: Adacel Vial IM ONE ×2 (18:50→19:22)
[2018-12-17] MEDS ORDERED: TYLENOL 325 MG PO STA (19:17)
[2018-12-17] MEDS ORDERED: TYLENOL 325 MG ONE (19:19)
[2018-12-17] MEDS ORDERED: BACIGUENT PACKET ONE (19:19)
[2018-12-17 19:30] VITALS: BP 141/79; PULSE 106
--- NOTE | 2018-12-18 09:12 | XRAY ---
Indication: Pain following fall. Comparison: None 2 views of the right humerus demonstrates mild osteopenia, mild AC degenerative arthropathy, tiny glenoid process bone island, and minimal axilla vascular calcifications. No other bony, articular, or soft tissue abnormalities.
--- NOTE | 2018-12-18 09:14 | XRAY ---
Indication: Pain following fall. Comparison: None 2 views of the left humerus demonstrates mild osteopenia, mild AC degenerative arthropathy, left lung base infiltrate/atelectasis/effusion, and left lung calcified granulomas. No other bony, articular, or soft tissue abnormalities.
--- NOTE | 2018-12-18 09:18 | XRAY ---
Indication: Pain following fall. Comparison: December 06, 2018. Portable chest demonstrates new moderate left base infiltrate/atelectasis/effusion. Stable right base fibrosis/scarring, left perihilar/left lung calcified granulomas, and right Port-A-Cath. Remaining lungs clear. Heart is not enlarged for AP portable technique. Stable aortic calcifications, Bony thorax again demonstrates osteopenia and degenerative changes. Impression: New left base infiltrate/atelectasis/effusion without cardiomegaly. Comment: Left lung finding not reported by the interpreting ER clinician. Telephone report given to Dr. Juarez at 0915 hrs. on December 18, 2018.
--- NOTE | 2018-12-18 09:20 | XRAY ---
Indication: Pain following fall. Comparison: None AP pelvis and 2 views of the right hip demonstrates osteopenia, left hip arthroplasty with Intact prosthesis, mild lower lumbar degenerative spondylosis, probable tiny uterine calcified fibroid, and scattered vascular calcifications. No other bony, articular, or soft tissue abnormalities.
== END 2018-12-17 19:31 | disposition home or self-care (01) ==
LOC: ED 16:19
DX: S00.81XA Abrasion of other part of head, initial encounter (principal); M79.602 Pain in left arm; M79.601 Pain in right arm; M25.551 Pain in right hip; R51 Headache; W07.XXXA Fall from chair, initial encounter; Y92.129 Unspecified place in nursing home as the place of occurrence of the external cause; Z79.01 Long term (current) use of anticoagulants; I73.9 Peripheral vascular disease, unspecified; E11.9 Type 2 diabetes mellitus without complications; M19.90 Unspecified osteoarthritis, unspecified site; K21.9 Gastro-esophageal reflux disease without esophagitis; Z79.899 Other long term (current) drug therapy; I48.91 Unspecified atrial fibrillation; M85.80 Other specified disorders of bone density and structure, unspecified site
CPT/HCPCS: 36000; 36415; 70450; 71045; 72125; 73060; 73502; 80053; 85025; 90471; 90715; 93005; 99284; J1642; A9270-GY